=== PATIENT | female | born 1975 | race Caucasian/White ===

== ENCOUNTER 2017-06-10 23:07 | Emergency (ER) | payer OTHER ==
--- NOTE | 2017-06-10 23:19 | PDOC ---
History of Present Illness - General Stated Complaint: HEADACHE Time Seen by Provider: 06/10/17 23:14 History Source: Patient Exam Limitations: No Limitations - History of Present Illness Initial Comments: 06/10/17 23:40 42-year-old female with no medical history presents to the emergency department complaining of right sided occipital headache. Pain is described as 9/10 sharp nonradiating intermittent discomfort 6 months which is become more constant over the past week. Patient denies dizziness, lightheadedness, neck pains, facial pain, back pains, chest pain, shortness of breath, abdominal pains, extremity numbness or tingling sensation. There are no alleviating or exacerbating factors. Patient states she did not take any Motrin or Tylenol for her discomfort. Patient states she was concerned earlier in the day because she took 4-5 seconds to recall her sons name. Timing/Duration: reports: 24 hours Associated Symptoms: denies: confusion, fatigue, numbness in legs/feet, ringing in ears, slurred speech, vision changes, weakness Past History - Past Medical History Allergies/Adverse Reactions: Allergies Allergy/AdvReac Type Severity Reaction Status Date / Time No Known Allergies Allergy Verified 06/10/17 23:26 Home Medications: Ambulatory Orders Albuterol [Ventolin] 17 gm IH QID PRN #1 inhaler 03/05/12 Acetaminophen [Tylenol .Regular Strength -] 650 mg PO Q4H PRN #0 tablet Ibuprofen [Motrin -] 600 mg PO Q4H PRN #0 tablet 05/13/13 Asthma: No Cancer: No Cardiac Disorders: No Diabetes: No HTN: No Seizures: No Thyroid Disease: No - Psycho/Social/Smoking Cessation Hx Anxiety: No Suicidal Ideation: No Smoking Status: No Smoking History: Never smoked Have you smoked in the past 12 months: No Number of Cigarettes Smoked Daily: 0 Hx Alcohol Use: No Drug/Substance Use Hx: No Hx Substance Use Treatment: No Review of Systems - Review of Systems Able to Perform ROS?: Yes Comments:: 06/10/17 23:17 CONSTITUTIONAL: Absent: fever, chills, diaphoresis, generalized weakness, malaise, loss of appetite HEENT: Absent: rhinorrhea, nasal congestion, throat pain, throat swelling, difficulty swallowing, mouth swelling, ear pain, eye pain, visual Changes CARDIOVASCULAR: Absent: chest pain, loss of consciousness, palpitations, irregular heart rate, peripheral edema RESPIRATORY: Absent: cough, shortness of breath, dyspnea with exertion, orthopnea, wheezing, stridor, hemoptysis GASTROINTESTINAL: Absent: abdominal pain, abdominal distension, nausea, vomiting, diarrhea, constipation, melena, hematochezia GENITOURINARY: Absent: dysuria, frequency, urgency, hesitancy, hematuria, flank pain, genital pain MUSCULOSKELETAL: Absent: myalgia, arthralgia, joint swelling SKIN: Absent: rash, itching, pallor HEMATOLOGIC/IMMUNOLOGIC: Absent: easy bleeding, easy bruising, lymphadenopathy, frequent infections ENDOCRINE: Absent: unexplained weight gain, unexplained weight loss, heat intolerance, cold intolerance NEUROLOGIC: +right occipital faust with light sensitivity Absent: focal weakness or paresthesias, dizziness, unsteady gait, seizure, mental status changes, bladder or bowel incontinence PSYCHIATRIC: Absent: anxiety, depression, suicidal or homicidal ideation, hallucinations. Is the patient limited Romansh proficient: No *Physical Exam - Physical Exam Comments: 06/10/17 23:17 GENERAL: Well developed, well nourished. Awake and alert. No acute distress. HEENT: Normocephalic, atraumatic. PERRLA, EOMI. No conjunctival pallor. Sclera are non- icteric. Moist mucous membranes. Oropharynx is clear. NECK: Supple. Full ROM. No JVD. Carotid pulses 2+ and symmetric, without bruits. No thyromegaly. No lymphadenopathy. CARDIOVASCULAR: Regular rate and rhythm. No murmurs, rubs, or gallops. Distal pulses are 2+ and symmetric. PULMONARY: No evidence of respiratory distress. Lungs clear to auscultation bilaterally. No wheezing, rales or rhonchi. ABDOMINAL: Soft. Non-tender. Non-distended. No rebound or guarding. No organomegaly. Normoactive bowel sounds. MUSCULOSKELETAL Normal range of motion at all joints. No bony deformities or tenderness. No CVA tenderness. EXTREMITIES: No cyanosis. No clubbing. No edema. No calf tenderness. SKIN: Warm and dry. Normal capillary refill. No rashes. No jaundice. NEUROLOGICAL: Alert, awake, appropriate. Cranial nerves 2-12 intact. No deficits to light touch and temperature in face, upper extremities and lower extremities. No motor deficits in the in face, upper extremities and lower extremities. Normoreflexic in the upper and lower extremities. Normal speech. Toes are down- going bilaterally. Gait is normal without ataxia. PSYCHIATRIC: Cooperative. Good eye contact. Appropriate mood and affect. ED Treatment Course - RADIOLOGY Radiograph Interpretation: 06/10/17 23:18 CT head w/o contrast: Exam: Noncontrast CT head Images: 123 Clinical indication: Right occipital headache. Reformatted coronal and sagittal images were provided. Findings: Multiple axial images were obtained of the brain without contrast. There is no mass-effect, midline shift or hemorrhage. There is no intra-axial or extra-axial fluid collection. The visualized portions of the paranasal sinuses are clear. The middle ear cavities and mastoids are clear. No calvarial fracture seen. Impression: No mass effect or intracranial hemorrhage. THIS DOCUMENT HAS BEEN ELECTRONICALLY SIGNED Jerry Juarez M.D. 09/2017 00:15 MAYELA Cruz Please call [facility] [phone]) with questions. End of Report Content ====== *DC/Admit/Observation/Transfer Diagnosis at time of Disposition: Headache Qualifiers: Headache type: unspecified Headache chronicity pattern: unspecified pattern Intractability: not intractable Qualified Code(s): R51 - Headache - Discharge Dispostion Disposition: HOME Condition at time of disposition: Stable Admit: No - Referrals Referrals: Sushil Amaya MD [Primary Care Provider] - Dexter Gonzalez MD [Staff Physician] - - Patient Instructions Printed Discharge Instructions: DI for Headache Additional Instructions: Be sure to follow up with your physician Return to the ER for severe/persistent/worsening symptoms
[2017-06-10 23:54] VITALS: BP 110/65; PULSE 66; TEMP 97.9; BMI 20.2
== END 2017-06-11 00:43 | disposition home or self-care (01) ==
LOC: JER 23:07
DX: R51 Headache (principal)
CPT/HCPCS: 70450-TC; 99281-25

== ENCOUNTER 2023-05-10 06:12 | Day surgery (SDC) | payer OTHER ==
[2023-05-09 10:34] VITALS: BMI 28.3
[2023-05-10 14:20] VITALS: TEMP 98
[2023-05-10 14:22] VITALS: RESP 14
[2023-05-10 14:24] VITALS: BP 119/65; PULSE 62
== END 2023-05-10 14:05 | disposition home or self-care (01) ==
LOC: JASU-ENDO 06:12
PROVIDERS: ATTEND Student in an Organized Health Care Education/Training Program
PROC: 0DBP8ZX Excision of Rectum, Via Natural or Artificial Opening Endoscopic, Diagnostic (ICD-10-PCS; principal; 2023-05-10 13:30)
DX: Z12.11 Encounter for screening for malignant neoplasm of colon (principal); D12.8 Benign neoplasm of rectum; K57.30 Diverticulosis of large intestine without perforation or abscess without bleeding; K63.89 Other specified diseases of intestine; Z80.0 Family history of malignant neoplasm of digestive organs
CPT/HCPCS: 81025; 88305-TC